=== PATIENT | female | born 1995 | race Caucasian/White ===

== ENCOUNTER → 2017-05-29 | Outpatient (CLI) | payer MEDICAID ==
[2017-05-29 11:02] LABS: ALANINE AMINOTRANSFERASE 25 U/L (9-52); ALBUMIN 4.2 g/dL (3.5-5.0); ALKALINE PHOSPHATASE 46 U/L (38-126); ANION GAP 11 (5-19); ASPARTATE AMINO TRANSFERASE 15 U/L (14-36); BILIRUBIN,DIRECT 0.3 mg/dL (0.0-0.4); BILIRUBIN,TOTAL 0.4 mg/dL (0.2-1.3); BLOOD UREA NITROGEN 6 mg/dL (7-20); CALCIUM 9.8 mg/dL (8.4-10.2); CARBON DIOXIDE 25 mmol/L (22-30); CHLORIDE 105 mmol/L (98-107); GLUCOSE 61 mg/dL (75-110); LDH 293 U/L (313-618); POTASSIUM 3.6 mmol/L (3.6-5.0); SODIUM 141.1 mmol/L (137-145); TOTAL PROTEIN 7.4 g/dL (6.3-8.2); URIC ACID 3.2 mg/dL (2.5-6.2)
== END ==
LOC: OCH 09:54
PROVIDERS: ATTEND Nurse Practitioner Women's Health
DX: Z34.81 Encounter for supervision of other normal pregnancy, first trimester (principal)
CPT/HCPCS: 36415; 80053; 83615; 84550

== ENCOUNTER → 2017-06-04 | Outpatient (CLI) | payer MEDICAID ==
--- NOTE | 2017-06-04 16:18 | RADIOLOGY REPORT (SQ) ---
EXAM DESCRIPTION: U/S [id number] TRNABD 1GES W/ODOP COMPLETED DATE/TIME: 06/04/2017 4:01 pm REASON FOR STUDY: ENCOUNTER FOR SUPERVISION OF OTHER NORMAL , FIRST TRIMESTER Z34.81 ENCOU NTER FOR SUPRVSN OF NORMAL , FIRST TRIM COMPARISON: None. TECHNIQUE: Transabdominal static and realtime grayscale images acquired of the pelvis. Additional se lected spectral and color Doppler images recorded. All images stored on PACs. bHCG: Not available. LIMITATIONS: None. FINDINGS: FETUS: Living intrauterine . EGA: 9 weeks 5 days ANYI: 01/02/2018 FHR: 162 beats per minute. SUBCHORIONIC BLEED: No. SIZE OF BLEED: Not applicable. UTERUS: No masses. No anomalies. CERVICAL LENGTH: Not measured. RIGHT ADNEXA: Normal ovary with normal vascular flow. No adnexal free fluid. No adnexal masses. LEFT ADNEXA: Ovary not identified. No adnexal free fluid. No adnexal masses. FREE FLUID: None. OTHER: No other significant finding. IMPRESSION: LIVING INTRAUTERINE . EGA 9 weeks 5 days Trimester of : First - 0 to 13 weeks. TECHNICAL DOCUMENTATION: JOB ID: [id number] [employer]- All Rights Reserved Reading location - IP/workstation name: [email or web address]
== END ==
LOC: RAD 14:46
PROVIDERS: ATTEND Nurse Practitioner Women's Health
DX: Z34.81 Encounter for supervision of other normal pregnancy, first trimester (principal)
CPT/HCPCS: 76801

== ENCOUNTER 2017-12-27 12:29 | Outpatient (CLI) | payer MEDICAID ==
[2017-12-27 13:29] LABS: APPEARANCE,URINE CLOUDY; BILIRUBIN,URINE NEGATIVE (NEGATIVE); GLUCOSE, URINE NEGATIVE (NEGATIVE); KETONES,URINE NEGATIVE (NEGATIVE); LEUKOCYTE ESTERASE,URINE LARGE (NEGATIVE); NITRITE,URINE NEGATIVE (NEGATIVE); PROTEIN,URINE 30 mg/dL (NEGATIVE); URINE SPECIFIC GRAVITY 1.024
[2017-12-27 13:30] LABS: COLOR,URINE YELLOW
--- NOTE | 2017-12-27 13:42 | Non Stress Test Report ---
Non Stress Test Datetime Report Generated by CPN: 12/27/2017 13:42 DEMOGRAPHIC EGA NST: 38.5 INDICATION Indication for Study: Other Indication for Study (NST) Other: lc r/o srom MONITORING Monitor Explained: Monitor Explained; Test Explained; Patient Verbalized Understanding Time on Monitor: 12/27/2017 12:55 Time off Monitor: 12/27/2017 12:35 NST Duration: -20 NST INTERVENTIONS NST Interventions: None Physician Notified NST: A. Mckenzie, CNM BABY A: [id number] BABY A Movement : Present Contraction Frequency : 5-18 FHR Baseline : 140 Accelerations : 15X15 Decelerations : None Variability : Moderate 6-25bpm NST Review: Meets Criteria for Reactive NST NST Review and Verified By : Gina Davidavancelke RN NST REPORT Report Trigger: Send Report
[2017-12-27 13:44] LABS: URINE AMPHETAMINES SCREEN NEGATIVE; URINE BARBITURATES SCREEN NEGATIVE; URINE BENZODIAZEPINES SCREEN NEGATIVE; URINE COCAINE SCREEN NEGATIVE; URINE MARIJUANA (THC) SCREEN NEGATIVE; URINE METHADONE SCREEN NEGATIVE; URINE PHENCYCLIDINE SCREEN NEGATIVE
== END 2017-12-27 13:50 | disposition home or self-care (01) ==
LOC: LC 12:29
PROVIDERS: ATTEND Obstetrics & Gynecology
PROC: 4A1HXCZ Monitoring of Products of Conception, Cardiac Rate, External Approach (ICD-10-PCS; principal; 2017-12-27)
DX: O47.1 False labor at or after 37 completed weeks of gestation (principal); Z3A.38 38 weeks gestation of pregnancy
CPT/HCPCS: 59025; 80307; 81005; 84112; 87086

== ENCOUNTER 2018-01-04 13:07 | Outpatient (CLI) | payer MEDICAID ==
[2018-01-04 14:06] LABS: APPEARANCE,URINE SLIGHTLY-CLOUDY; BILIRUBIN,URINE NEGATIVE (NEGATIVE); COLOR,URINE YELLOW; GLUCOSE, URINE NEGATIVE (NEGATIVE); KETONES,URINE NEGATIVE (NEGATIVE); LEUKOCYTE ESTERASE,URINE SMALL (NEGATIVE); NITRITE,URINE NEGATIVE (NEGATIVE); PROTEIN,URINE NEGATIVE (NEGATIVE); URINE SPECIFIC GRAVITY 1.014
[2018-01-04 14:33] LABS: URINE AMPHETAMINES SCREEN NEGATIVE; URINE BARBITURATES SCREEN NEGATIVE; URINE BENZODIAZEPINES SCREEN NEGATIVE; URINE COCAINE SCREEN NEGATIVE; URINE MARIJUANA (THC) SCREEN NEGATIVE; URINE METHADONE SCREEN NEGATIVE; URINE PHENCYCLIDINE SCREEN NEGATIVE
--- NOTE | 2018-01-04 21:47 | Non Stress Test Report ---
Non Stress Test Datetime Report Generated by CPN: 01/04/2018 21:47 DEMOGRAPHIC EGA NST: 39.6 INDICATION Indication for Study: Other Indication for Study (NST) Other: Labor Check MONITORING Monitor Explained: Monitor Explained; Test Explained; Patient Verbalized Understanding Time on Monitor: 01/04/2018 13:21 NST INTERVENTIONS NST Interventions: PO Hydration; Reposition Patient Physician Notified NST: Dr. Deyanira BABY A: [id number] BABY A Movement : Present Contraction Frequency : 2-5 FHR Baseline : 135 Accelerations : 15X15 Decelerations : None Variability : Moderate 6-25bpm NST Review: Meets Criteria for Reactive NST NST Review and Verified By : Jj Moore RN NST Results: Reactive NST REPORT Report Trigger: Send Report
== END 2018-01-04 15:11 | disposition home or self-care (01) ==
LOC: LC 13:07
PROVIDERS: ATTEND Obstetrics & Gynecology
PROC: 4A1HXCZ Monitoring of Products of Conception, Cardiac Rate, External Approach (ICD-10-PCS; principal; 2018-01-04)
DX: O47.1 False labor at or after 37 completed weeks of gestation (principal); Z3A.39 39 weeks gestation of pregnancy
CPT/HCPCS: 59025; 80307; 81005

== ENCOUNTER 2018-01-04 21:46 | Outpatient (CLI) | payer MEDICAID ==
[2018-01-04 22:37] LABS: APPEARANCE,URINE CLOUDY; BILIRUBIN,URINE NEGATIVE (NEGATIVE); COLOR,URINE YELLOW; GLUCOSE, URINE NEGATIVE (NEGATIVE); KETONES,URINE NEGATIVE (NEGATIVE); LEUKOCYTE ESTERASE,URINE LARGE (NEGATIVE); NITRITE,URINE NEGATIVE (NEGATIVE); PROTEIN,URINE NEGATIVE (NEGATIVE)
[2018-01-04 23:00] LABS: URINE AMPHETAMINES SCREEN NEGATIVE; URINE BARBITURATES SCREEN NEGATIVE; URINE BENZODIAZEPINES SCREEN NEGATIVE; URINE COCAINE SCREEN NEGATIVE; URINE MARIJUANA (THC) SCREEN NEGATIVE; URINE METHADONE SCREEN NEGATIVE; URINE PHENCYCLIDINE SCREEN NEGATIVE
[2018-01-04] MEDS ORDERED: HYDROXYZINE PAMOATE 50 MG CAPSULE ONE (23:02)
[2018-01-04] MEDS ORDERED: HYDROXYZINE PAMOATE 50 MG CAPSULE PO ONE (23:04)
--- NOTE | 2018-01-04 23:27 | Non Stress Test Report ---
Non Stress Test Datetime Report Generated by CPN: 01/04/2018 23:27 DEMOGRAPHIC EGA NST: 39.6 INDICATION Indication for Study: Ordered by Provider Indication for Study (NST) Other: LC URINE RESULTS Urine Protein, NST: Negative Urine Ketones - NST: Negative Urine Glucose - NST: Negative Urine Blood - NST: Positive MONITORING Monitor Explained: Monitor Explained; Test Explained; Patient Verbalized Understanding Time on Monitor: 01/04/2018 22:06 Time off Monitor: 01/04/2018 23:00 NST Duration: 54 NST INTERVENTIONS NST Interventions: PO Hydration Physician Notified NST: Deyanira Physician Notified NST: Dr. Deyanira BABY A Movement : Present Contraction Frequency : irregular FHR Baseline : 140 Accelerations : 15X15 Decelerations : None Variability : Moderate 6-25bpm NST Review: Meets Criteria for Reactive NST NST Review and Verified By : Annbaelle Ogden RN NST Results: Reactive NST REPORT Report Trigger: Send Report
== END 2018-01-04 23:16 | disposition home or self-care (01) ==
LOC: LC 21:46
PROVIDERS: ATTEND Obstetrics & Gynecology
PROC: 4A1HXCZ Monitoring of Products of Conception, Cardiac Rate, External Approach (ICD-10-PCS; principal; 2018-01-04)
DX: O47.1 False labor at or after 37 completed weeks of gestation (principal); Z3A.49 Greater than 42 weeks gestation of pregnancy
CPT/HCPCS: 59025; 81005; 80307; J3490

== ENCOUNTER 2018-01-05 01:59 | Inpatient (IN) | payer MEDICAID ==
[2018-01-05] MEDS ORDERED: RINGERS SOLUTION,LACTATED 1,000 ML IV PRN (02:17)
[2018-01-05] MEDS ORDERED: OXYTOCIN 10 UNIT/ML VIAL ONE (02:19)
[2018-01-05] MEDS ORDERED: MISOPROSTOL 0.2 MG TABLET ONE (02:19)
[2018-01-05] MEDS ORDERED: LIDOCAINE 1% INJ-PF (10 MG/ML) 30 ML SDV ONE (02:20)
[2018-01-05] MEDS ORDERED: OXYTOCIN/NORMAL SALINE 20 UNIT/1,000 ML RTUINJ ONE (02:20)
[2018-01-05] MEDS ORDERED: KETOROLAC TROMETHAMINE INJ/PF 30 MG/1 ML SDV IV ONE (02:41)
[2018-01-05] MEDS ORDERED: KETOROLAC TROMETHAMINE INJ/PF 30 MG/1 ML SDV ONE (02:45)
--- NOTE | 2018-01-05 02:46 | Admission Physical ---
Datetime Report Generated by CPN: 01/05/2018 02:46 CURRENT ADMISSION Chief Complaint: Uterine Contractions Indication for Induction: Not Applicable Admit Impression : Term, Intrauterine Admit Plan: Admit to Unit; Initiate Labor Protocol ALLERGIES Medication Allergies: No Medication Allergies: No Known Allergies (01/05/2018) Latex: No Latex Allergies OBSTETRICAL HISTORY EDC: 01/05/2018 00:00 : 2 Para: 1 Term: 0 : 1 SAB: 0 IAB: 0 Ectopic: 0 Livin Cesareans: 0 VBACs: 0 Multiple Births: 0 Gestational Diabetes: No Rh Sensitization: No Incompetent Cervix: No KAILEE: No Infertility: No ART Treatment: No Uterine Anomaly: No IUGR: No Hx Previous C/S: No Macrosomia: No Hx Loss/Stillborn: No PIH: Yes Hx : No Placenta Previa/Abruption: No Depression/PP Depression: No PTL/PROM: No Post Hemorrhage: No Current Procedures: Ultrasound Obstetrical History Comments: G1 - , 35 WEEKS, HELLP G2 - CURRENT SEE RECORDS Alcohol: No Marijuana : No Cocaine: No Other Illicit Drugs: No Cigarettes: Never Smoker. [id number] MEDICAL HISTORY Diabetes: No Blood Transfusion: No Pulmonary Disease (Asthma, TB): No Breast Disease: No Hypertension: No Structures Mechanic Surgery: No Heart Disease: No Hosp/Surgery: No Autoimmune Disorder: No Anesthetic Complications: No Kidney Disease: No Abnormal Pap Smear: No Neuro/Epilepsy: No Psychiatric Disorders: No Other Medical Diseases: No Hepatitis/Liver Disease: No Significant Family History: No Varicosities/Phlebitis: No Trauma/Violence : No Thyroid Dysfunction: No Medical History Comments: APPENDECTOMY INFECTIOUS HISTORY Gonorrhea: No Genital Herpes: No Chlamydia: No Tuberculosis: No Syphilis: No Hepatitis: No HIV/AIDS Exposure: No Rash or Viral Illness: No HPV: No PHYSICAL EXAM General: Normal HEENT: Normal Neurologic: Normal Thyroid: Normal Heart: Normal Lungs: Normal Breast: Normal Back: Normal Abdomen: Normal Genitourinary Exam: Normal Extremities: Normal DTRs: Normal Pelvic Type: Adequate Vital Signs: Reviewed; Within Normal Limits VAGINAL EXAM Dilatation: 10 Effacement: 100 Station: 3 MEMBRANES Membranes: Ruptured Amniotic Fluid Color: Clear FETUS A EGA: 40.0 Monitoring: External US FHR- Baseline: 120 Variability: Moderate 6-25bpm Accelerations: 15X15 Decelerations: Early; Late; Variable FHR Category: Category II PLANS FOR LABOR AND DELIVERY Labor and Delivery: None Pain Management: Epidural Feeding Preference: Breast Circumcision: N/A INFORMED CONSENT Signature: with User ID: [email or web address]
[2018-01-05] MEDS ORDERED: MAGNESIUM HYDROXIDE SUSP 30 ML UDCUP PO PRN (02:48)
[2018-01-05] MEDS ORDERED: GLYCERIN/WITCH HAZEL LEAF 1 EACH MED..PAD TP PRN (02:48)
[2018-01-05] MEDS ORDERED: ACETAMINOPHEN WITH CODEINE #3 TABLET PO PRN (02:48)
[2018-01-05] MEDS ORDERED: PROMETHAZINE HCL 25 MG TABLET PO PRN (02:48)
[2018-01-05] MEDS ORDERED: PROMETHAZINE HCL 25 MG SUPP.RECT PR PRN (02:48)
[2018-01-05] MEDS ORDERED: PROMETHAZINE HCL INJ 25 MG/1 ML VIAL IV PRN (02:48)
[2018-01-05] MEDS ORDERED: PSEUDOEPHEDRINE HCL 30 MG TABLET PO PRN (02:48)
[2018-01-05] MEDS ORDERED: DIPH/PERTUSS(ACELL)/TETANUS VAC/PF 0.5 ML SYR (>=10YO) IM PRN (02:48)
[2018-01-05] MEDS ORDERED: ZOLPIDEM TARTRATE 5 MG TABLET PO PRN (02:48)
[2018-01-05] MEDS ORDERED: MEASLES,MUMPS&RUBELLA VACC/PF 0.5 ML VIAL SUBCUT PRN (02:48)
[2018-01-05] MEDS ORDERED: NA PHOS,M-B/NA PHOS,DI-BA (ADULT) 133 ML ENEMA PR PRN (02:48)
[2018-01-05] MEDS ORDERED: DIPHENHYDRAMINE HCL 25 MG CAPSULE PO PRN (02:48)
[2018-01-05] MEDS ORDERED: BENZOCAINE/MENTHOL AEROSOL SPRAY 56 ML TOP PRN (02:48)
[2018-01-05] MEDS ORDERED: ACETAMINOPHEN 650 MG SUPP.RECT PR PRN (02:48)
[2018-01-05] MEDS ORDERED: OXYTOCIN/NORMAL SALINE 20 UNIT/1,000 ML RTUINJ IV PRN (02:48)
[2018-01-05] MEDS ORDERED: DIBUCAINE 1% OINTMENT 28 GM TP PRN (02:48)
[2018-01-05 02:49] LABS: MEAN CORPUSCULAR HEMOGLOBIN 27.3 pg (27.0-33.4); MEAN CORPUSCULAR HGB CONC 32.4 g/dL (32.0-36.0); MEAN CORPUSCULAR VOLUME 84 fl (80-97); PLATELET COUNT 402 10^3/uL (150-450); RED BLOOD COUNT 3.69 10^6/uL (3.72-5.28); RED CELL DISTRIBUTION WIDTH 13.6 % (11.5-14.0); WHITE BLOOD COUNT 20.8 10^3/uL (4.0-10.5)
[2018-01-05 03:03] LABS: ABSOLUTE LYMPHOCYTES# (MANUAL) 2.9 10^3/uL (0.5-4.7); ABSOLUTE NEUTROPHILS# (MANUAL) 16.8 10^3/uL (1.7-8.2); BASOPHILS % (MANUAL) 0 % (0-2); EOSINOPHILS % (MANUAL) 0 % (0-6); LYMPHOCYTES % (MANUAL) 14 % (13-45); MONOCYTES % (MANUAL) 5 % (3-13); SEGMENTED NEUTROPHILS % (MAN) 81 % (42-78); TOTAL CELLS COUNTED 100
[2018-01-05 03:06] LABS: OVALOCYTES SLIGHT; PLATELET COMMENT ADEQUATE; POIKILOCYTOSIS SLIGHT; TOXIC GRANULATION SLIGHT; TOXIC VACUOLATION PRESENT
[2018-01-05] MEDS ORDERED: METHYLERGONOVINE MALEATE INJ/PF 0.2 MG/1 ML AMPULE ONE (04:01)
[2018-01-05] MEDS: IBUPROFEN 800 MG TABLET PO SCH ×3 (06:03→22:33)
[2018-01-05] MEDS: ACETAMINOPHEN WITH CODEINE #3 TABLET PO PRN ×2 (08:40→15:28)
[2018-01-05 09:51] LABS: APPEARANCE,URINE CLOUDY; BILIRUBIN,URINE NEGATIVE (NEGATIVE); COLOR,URINE YELLOW; GLUCOSE, URINE NEGATIVE (NEGATIVE); KETONES,URINE NEGATIVE (NEGATIVE); LEUKOCYTE ESTERASE,URINE TRACE (NEGATIVE); NITRITE,URINE NEGATIVE (NEGATIVE); PROTEIN,URINE 30 mg/dL (NEGATIVE); URINE SPECIFIC GRAVITY 1.016
[2018-01-05] MEDS: ASPIRIN 81 MG TABLET, CHEWABLE PO SCH (09:54)
[2018-01-05] MEDS: PRENATAL VITAMIN W DHA CAPSULE PO SCH (09:54)
[2018-01-05] MEDS: FAMOTIDINE 20 MG TABLET PO SCH ×2 (09:54→22:33)
[2018-01-05] MEDS: SENNOSIDES/DOCUSATE 8.6-50 MG 1 EACH TABLET PO SCH (09:54)
[2018-01-05] MEDS: DOCUSATE SODIUM 100 MG CAPSULE PO SCH ×2 (09:54→18:31)
[2018-01-05] MEDS: FERROUS SULFATE 325 MG TABLET PO SCH ×2 (09:54→18:31)
[2018-01-05] MEDS ORDERED: (PENDING PHARMACY ID) (Prenatal No122/Iron/Folic Acid [Prenatal Multi Tablet] 1 EACH) PO SCH (10:00)
--- NOTE | 2018-01-05 10:12 | PDOC PROGRESS REPORT ---
Subjective-OB Progress Note for:: 01/05/18 Subjective: Doing well, no c/o, discussing delivery, bottle feeding, encouraged to wear bra Physical Exam (OB) Vital Signs: Temp Pulse Resp BP Pulse Ox 99.1 F 61 16 109/60 98 01/05/18 08:14 01/05/18 08:14 01/05/18 08:14 01/05/18 08:14 01/05/18 08:14 Intake & Output 01/04/18 01/05/18 01/06/18 06:59 06:59 06:59 Intake Total 788 Balance 788 Weight 84 kg - PIH/Pre-Eclampsia Clonus: Negative Headache: Absent Epigastric Pain: No Visual Changes: No - Lochia Lochia Amount: Scant < 10 ml Lochia Color: Rubra/Red - Abdomen Description: Tender, Soft, Round Hernia Present: No Fundal Description: Firm, Midline Fundal Height: u/u - u/2 Objective-Diagnostic Laboratory: 01/05/18 02:30 01/05/18 01/05/18 01/05/18 02:30 02:30 08:57 WBC 20.8 H RBC 3.69 L Hgb 10.0 L Hct 31.0 L MCV 84 MCH 27.3 MCHC 32.4 RDW 13.6 Plt Count 402 Seg Neutrophils % Not Reportable Lymphocytes % Not Reportable Monocytes % Not Reportable Eosinophils % Not Reportable Basophils % Not Reportable Absolute Neutrophils Not Reportable Absolute Lymphocytes Not Reportable Absolute Monocytes Not Reportable Absolute Eosinophils Not Reportable Absolute Basophils Not Reportable Urine Color YELLOW Urine Appearance CLOUDY Urine pH 7.0 Ur Specific [place] 1.016 Urine Protein 30 H Urine Glucose (UA) NEGATIVE Urine Ketones NEGATIVE Urine Blood LARGE H Urine Nitrite NEGATIVE Ur Leukocyte Esterase TRACE H Urine WBC (Auto) 21 Urine RBC (Auto) >182 Blood Type O POSITIVE Antibody Screen NEGATIVE Assessment and Plan(PN) - Assessment and Plan (1) Delivery normal Is this a current diagnosis for this admission?: Yes - Time Spent with Patient Time with patient: Less than 15 minutes Medications reviewed and adjusted accordingly: Yes - Disposition Anticipated Discharge: Home Within: within 48 hours
[2018-01-06] MEDS: IBUPROFEN 800 MG TABLET PO SCH ×3 (05:21→21:26)
[2018-01-06 07:35] LABS: HEMATOCRIT 25.6 % (36.0-47.0); HEMOGLOBIN 8.7 g/dL (12.0-15.5); MEAN CORPUSCULAR HEMOGLOBIN 28.6 pg (27.0-33.4); MEAN CORPUSCULAR HGB CONC 33.8 g/dL (32.0-36.0); MEAN CORPUSCULAR VOLUME 84 fl (80-97); PLATELET COUNT 196 10^3/uL (150-450); RED BLOOD COUNT 3.03 10^6/uL (3.72-5.28); RED CELL DISTRIBUTION WIDTH 13.6 % (11.5-14.0); WHITE BLOOD COUNT 9.3 10^3/uL (4.0-10.5)
--- NOTE | 2018-01-06 10:23 | PDOC PROGRESS REPORT ---
Subjective-OB Progress Note for:: 01/06/18 Subjective: PP Day #1, doing well, no complaints, bottle feeding, O+, Rubella Immune Physical Exam (OB) Vital Signs: Temp Pulse Resp BP Pulse Ox 97.7 F 52 L 18 109/55 L 98 01/06/18 08:24 01/06/18 08:24 01/06/18 08:24 01/06/18 08:24 01/06/18 08:24 Intake & Output 01/05/18 01/06/18 01/07/18 06:59 06:59 06:59 Intake Total 1268 400 Balance 1268 400 Weight 84 kg - General General Appearance: Appears well, Alert In distress: None - PIH/Pre-Eclampsia Clonus: Negative Headache: Absent Epigastric Pain: No Visual Changes: No - Lochia Lochia Amount: Scant < 10 ml Lochia Color: Rubra/Red - Abdomen Description: Soft, Round Hernia Present: No Fundal Description: Firm, Midline Fundal Height: u/u - u/2 - Respiratory Respiratory Status: No respiratory distress - Abdominal Distension: No distension Tenderness: Nontender - Genitourinary Female External exam: Normal - Extremities Upper extremity: Normal inspection Lower extremities: Normal inspection - Neurological Cognition: Normal Orientation: AAOx4 - Psychological Associated symptoms: Normal affect, Normal mood - Skin Skin Temperature: Warm Skin Moisture: Dry Objective-Diagnostic Laboratory: 01/06/18 07:00 01/06/18 07:00 WBC 9.3 RBC 3.03 L Hgb 8.7 L Hct 25.6 L MCV 84 MCH 28.6 MCHC 33.8 RDW 13.6 Plt Count 196 Assessment and Plan(PN) - Assessment and Plan (1) Anemia, Is this a current diagnosis for this admission?: Yes (2) Delivery normal Is this a current diagnosis for this admission?: Yes Plan:: Routine PP orders - Time Spent with Patient Time with patient: Less than 15 minutes Medications reviewed and adjusted accordingly: Yes - Disposition Anticipated Discharge: Home Within: within 24 hours
[2018-01-06] MEDS: ASPIRIN 81 MG TABLET, CHEWABLE PO SCH (12:25)
[2018-01-06] MEDS: SENNOSIDES/DOCUSATE 8.6-50 MG 1 EACH TABLET PO SCH (12:25)
[2018-01-06] MEDS: DOCUSATE SODIUM 100 MG CAPSULE PO SCH ×2 (12:25→17:58)
[2018-01-06] MEDS: FERROUS SULFATE 325 MG TABLET PO SCH ×2 (12:25→17:58)
[2018-01-06] MEDS: FAMOTIDINE 20 MG TABLET PO SCH ×2 (12:25→21:26)
[2018-01-06] MEDS: PRENATAL VITAMIN W DHA CAPSULE PO SCH (12:25)
[2018-01-07] MEDS: IBUPROFEN 800 MG TABLET PO SCH (05:51)
[2018-01-07 08:19] VITALS: BP 109/55
--- NOTE | 2018-01-07 08:46 | Delivery Summary ---
Del Sum A-C Datetime Report Generated by CPN: 01/07/2018 08:45 DELIVERY PERSONNEL DELIVERY PERSONNEL: [id number] Delivery Doctor:: Dr. Mcmillan Labor and Delivery Nurse:: Celeste Bennett RNwater resources program director Nurse:: Veena Ogden RN Nursery Nurse:: Suzy Snider RN Relationship Manager/FLOOR COVERINGS INSTALLER: Kemi Green, ST MATERNAL INFORMATION Delivery Anesthesia: None Medications After Delivery: Methergine 0.2mg IM; Cytotec 1000mcg Per Rectum/Vagina; Other-Please Comment Meds After Delivery Comment: Pitocin 20 units IM Toradol 30 mg IV Maternal Complications: Precipitous Labor (<3hrs) LABOR SUMMARY EDC: 01/05/2018 00:00 No. Babies in Womb: 1 Attempted: No Labor Anesthesia: None LABOR INFORMATION Reason for Induction: Not Applicable Onset of Labor: 01/05/2018 02:11 Complete Dilatation: 01/05/2018 02:30 Oxytocin: N/A Group B Beta Strep: NEGATIVE Antibiotics # of Doses: 0 Antibiotics Time of Last Dose: N/A Name of Antibiotic Given: N/A Steroids Given: None Reason Steroids Not Administered: Not Applicable MEMBRANES Membranes Rupture Method: Spontaneous Rupture of Membranes: 01/05/2018 02:17 Length of Rupture (hr): 0.35 Amniotic Fluid Color: Particulate Meconium Amniotic Fluid Amount: Moderate Amniotic Fluid Odor: Normal STAGES OF LABOR Stage 1 hr: 0 Stage 1 min: 19 Stage 2 hr: 0 Stage 2 min: 8 Stage 3 hr: 0 Stage 3 min: 3 Total Time in Labor hr: 0 Total Time in Labor min: 30 VAGINAL DELIVERY Episiotomy: None Laceration #1: None Laceration Extension #1: N/A Laceration Repair: Not Applicable Initial Vag Sponge Count: 0 Final Vag Sponge Count: 0 Initial Vag Sharps Count: 0 Final Vag Sharps Count: 0 Sponge Count Correct: N/A Sharps Count Correct: N/A CSECTION DELIVERY Primary Indication: N/A Secondary Indication: N/A CSection Incidence: N/A Labor: N/A Elective: N/A CSection Incision: N/A BABY A INFORMATION Delivery Date/Time: 01/05/2018 02:38 Method of Delivery: Vaginal Method of Delivery: Vaginal Born in Route : No : N/A Forceps: N/A Vacuum Extraction: N/A Shoulder Dystocia : No PRESENTATION/POSITION BABY A Presentation: Cephalic Presentation: Cephalic Cephalic Presentation: Vertex Vertex Position: Left Occipital Anterior Breech Presentation: N/A PLACENTA INFORMATION BABY A Placenta Delivery Time : 01/05/2018 02:41 Placenta Method of Delivery: Spontaneous Placenta Status: Delivered SCORES BABY A Heart Rate 1 min: >100 bpm Resp Effort 1 min: Good Cry Reflex Irritability 1 min: Cough or Sneeze or Pulls Away Muscle Tone 1 min: Active Motion Color 1 min: Blue/Pale Resuscitation Effort 1 min: N/A SCORE 1 MIN: 8 Heart Rate 5 min: >100 bpm Resp Effort 5 min: Good Cry Reflex Irritability 5 min: Cough or Sneeze or Pulls Away Muscle Tone 5 min: Active Motion Color 5 min: Body Wrens, Extremities Blue Resuscitation Effort 5 min: N/A SCORE 5 MIN: 9 INFORMATION BABY A Gestational Age at Delivery: 40.0 Gestational Status: Full Term- 39- 40.6 Weeks Infant Outcome : Liveborn Infant Condition : Stable Sex: Female Infant Sex: Female IDENTIFICATION BABY A Infant Verification Date/Time: 01/05/2018 02:45 ID Band Number: [id number] Mother's Name Verified: Yes RN Verifying Infant: Charles LindseySybil ORTEGA Additional Verifying Personnel: Magy Bennett RN WEIGHT/LENGTH BABY A Birthweight (gm): 3900 Weight (lb): 8 Infant Weight (oz): 10 Length (in): 20.50 Infant Length (cm): 52.07 CORD INFORMATION BABY A No. Cord Vessels: 3 Nuchal Cord : N/A Cord Blood Taken: Yes-For Eval (Mom's Blood Type - or O+) Suction: Mouth; Nose; Pharynx ASSESSMENT BABY A Infant Complications: Meconium Physical Findings at Delivery: Within Normal Limits Physical Findings- Other: initial assessment ot be performed by nursery nurse who is at bedside Respirations: Appears Normal Skin to Skin: Yes Cut Off Tender Glass/ALS Called : No Care By: Elva Snider, RN BABY B INFORMATION : N/A SIGNATURES Signature: with User ID: [email or web address]
[2018-01-07] MEDS: PRENATAL VITAMIN W DHA CAPSULE PO SCH (09:39)
[2018-01-07] MEDS: ASPIRIN 81 MG TABLET, CHEWABLE PO SCH (09:39)
[2018-01-07] MEDS: FERROUS SULFATE 325 MG TABLET PO SCH (09:39)
[2018-01-07] MEDS: DOCUSATE SODIUM 100 MG CAPSULE PO SCH (09:40)
[2018-01-07] MEDS: FAMOTIDINE 20 MG TABLET PO SCH (09:40)
[2018-01-07] MEDS: SENNOSIDES/DOCUSATE 8.6-50 MG 1 EACH TABLET PO SCH (09:40)
--- NOTE | 2018-01-07 10:13 | PDOC DISCHARGE SUMMARY ---
Final Diagnosis Discharge Date: 01/07/18 - Final Diagnosis (1) Anemia, Is this a current diagnosis for this admission?: Yes (2) Delivery normal Is this a current diagnosis for this admission?: Yes Discharge Data - Discharge Medication Prescriptions: Ibuprofen [Motrin 800 mg Tablet] 800 mg PO Q8HP PRN #60 tablet PRN Reason: Home Medications: No122/Iron/Folic Acid [ Multi Tablet] 1 each PO DAILY 12/27/17 Ferrous Sulfate [Feosol 325 mg Tablet] 325 mg PO BID tablet 01/07/18 Ibuprofen [Motrin 800 mg Tablet] 800 mg PO Q8HP PRN #60 tablet 01/07/18 Procedures: NST Intrapartum Procedure(s): Spontaneous Vaginal Delivery - Diagnosis Test Laboratory: Temp Pulse Resp BP Pulse Ox 98.5 F 69 16 109/55 L 100 01/07/18 09:43 01/07/18 09:43 01/07/18 09:43 01/07/18 09:43 01/07/18 09:43 01/05/18 01/06/18 02:30 07:00 RBC 3.69 L 3.03 L Hgb 10.0 L 8.7 L Hct 31.0 L 25.6 L - Discharge information/Instructions Discharge Activity: Balance Activity w/Rest, Pelvic Rest Discharge Diet: Regular Disposition: HOME, SELF-CARE Follow up with: [facility] in: 4, Weeks
[2018-01-07] MEDS ORDERED: DIPH/PERTUSS(ACELL)/TETANUS VAC/PF 0.5 ML SYR (>=10YO) IM PRN (11:15)
== END 2018-01-07 13:23 | disposition home or self-care (01) | DRG 806 ==
LOC: LC 01:59 → LR 02:15 → 2S 05:08
PROVIDERS: ADMIT Obstetrics & Gynecology; ATTEND Obstetrics & Gynecology
PROC: 10E0XZZ Delivery of Products of Conception, External Approach (ICD-10-PCS; principal; 2018-01-05)
PROC: 4A1HXCZ Monitoring of Products of Conception, Cardiac Rate, External Approach (ICD-10-PCS; 2018-01-05)
DX: O62.3 Precipitate labor (principal); D62 Acute posthemorrhagic anemia; Z37.0 Single live birth; O90.81 Anemia of the puerperium; Z3A.40 40 weeks gestation of pregnancy
CPT/HCPCS: 36415; 81001; 85025; 85027; 86592; 86850; 86900; 86901; 87086; 90715; J1885; J2210; J2590; J3490

== ENCOUNTER 2018-06-29 20:58 | Emergency (ER) | payer MEDICAID ==
--- NOTE | 2018-06-29 22:28 | ER Document Report ---
ED Medical Screen (RME) - General Chief Complaint: Knee Pain Stated Complaint: KNEE PAIN Time Seen by Provider: 06/29/18 22:25 Primary Care Provider: ANABEL CRAWFORD NP [Primary Care Provider] - Follow up as needed Notes: 22-year-old female presents to the emergency department with acute left knee pain since yesterday. 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 She was unable to bear full weight on it but is able to ambulate on it and bear some weight. No trauma, no twisting injury, no fevers, patient is able to move the knee no other complaints TRAVEL OUTSIDE OF THE [place] IN LAST 30 DAYS: No - Related Data Allergies/Adverse Reactions: No Known Allergies Allergy (Verified 01/05/18 02:14) Past Medical History - Social History Chew tobacco use (# tins/day): No Frequency of alcohol use: None Drug Abuse: None Renal/ Medical History: Reports: Hx Pelvic Inflammatory Disease. Denies: Hx Peritoneal Dialysis Past Surgical History: Reports: Hx Appendectomy - Immunizations Immunizations up to date: Yes Hx Diphtheria, Pertussis, Tetanus Vaccination: Yes Physical Exam - Vital signs Vitals: Temp Pulse Resp BP Pulse Ox 98.3 F 79 16 113/53 L 100 06/29/18 21:57 06/29/18 21:57 06/29/18 21:57 06/29/18 21:57 06/29/18 21:57 Course - Vital Signs Vital signs: Temp Pulse Resp BP Pulse Ox 98.3 F 79 16 113/53 L 100 06/29/18 21:57 06/29/18 21:57 06/29/18 21:57 06/29/18 21:57 06/29/18 21:57 Doctor's Discharge - Discharge Referrals: ANABEL CRAWFORD NP [Primary Care Provider] - Follow up as needed
--- NOTE | 2018-06-30 00:03 | ER Document Report ---
HPI - HPI Patient complains to provider of: Knee pain Time Seen by Provider: 06/29/18 22:25 Pain Level: 4 Context: 22-year-old female presents to the emergency department with acute left knee pain since yesterday. 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 She was unable to bear full weight on it but is able to ambulate on it and bear some weight. No trauma, no twisting injury, no fevers, patient is able to move the knee no other complaints - CONSTITUTIONAL Constitutional: DENIES: Fever, Chills - REPRODUCTIVE Reproductive: DENIES: : - MUSCULOSKELETAL Musculoskeletal: REPORTS: Extremity pain - right knee Past Medical History - Social History Smoking Status: Never Smoker Chew tobacco use (# tins/day): No Frequency of alcohol use: None Drug Abuse: None Family History: Reviewed & Not Pertinent Patient has suicidal ideation: No Patient has homicidal ideation: No Renal/ Medical History: Reports: Hx Pelvic Inflammatory Disease. Denies: Hx Peritoneal Dialysis Past Surgical History: Reports: Hx Appendectomy - Immunizations Immunizations up to date: Yes Hx Diphtheria, Pertussis, Tetanus Vaccination: Yes Vertical Provider Document - CONSTITUTIONAL Notes: PHYSICAL EXAMINATION: Reviewed vital signs and charting by RN GENERAL: Alert, interacts well. No acute distress. HEAD: Normocephalic, atraumatic. EYES: Pupils equal and round. Extraocular movements intact. ENT: Oral mucosa moist, tongue midline. NECK: Full range of motion. Supple. Trachea midline. LUNGS: Clear to auscultation bilaterally, no wheezes, rales, or rhonchi. No respiratory distress. HEART: Regular rate and rhythm. No murmur EXTREMITIES: Moves all 4 extremities spontaneously. Limited range of motion left knee but she is able to move it more pain with knee extension and flexion, full strength 5/5 in left lower extremity some mild edema, pain in the popliteal fossa, normal distal neurovascular exam BACK: No CVAT NEUROLOGIC: Oriented and appropriate. Normal speech. PSYCH: Normal affect, normal mood. SKIN: Warm, dry, normal turgor. No rashes or lesions noted. - INFECTION CONTROL TRAVEL OUTSIDE OF THE [place] IN LAST 30 DAYS: No Course - Re-evaluation Re-evalutation: 06/29/18 23:49 Well-appearing patient can ambulate on it but with difficulty so I placed her in a wheelchair. No obvious trauma. Will defer x-ray at this time. Explained to patient that she has some type of soft tissue injury. Good distal pulses warm skin, knee is not erythematous or warm to touch. Plan to discharge with Orth O follow-up patient agrees with plan. - Vital Signs Vital signs: Temp Pulse Resp BP Pulse Ox 98.3 F 79 16 113/53 L 100 06/29/18 21:57 06/29/18 21:57 06/29/18 21:57 06/29/18 21:57 06/29/18 21:57 Discharge - Discharge Clinical Impression: Knee injury Qualifiers: Encounter type: initial encounter Laterality: left Qualified Code(s): S89.92XA - Unspecified injury of left lower leg, initial encounter Condition: Good Disposition: HOME, SELF-CARE Instructions: Ice & Elevation ([facility]), Suspected Internal Knee Injury ([facility]) Additional Instructions: You are seen in the emergency department for knee pain. Since there was no trauma it is highly unlikely that he sustained a fracture or dislocation. Could relate to bursitis of the knee or potentially a soft tissue injury. It is important that you rest, ice, compress, and elevate the extremity. Please take Motrin 600 mg every 6 hours for pain and inflammation and Tylenol 1000 mg every 6 hours for pain. Please return to the emergency department if your knee gets red and swollen hot Referrals: ANABEL CRAWFORD NP [Primary Care Provider] - Follow up as needed JOVAN CARMONA MD [ACTIVE STAFF] - Follow up as needed
[2018-06-30 02:54] VITALS: BP 115/74
== END 2018-06-30 01:05 | disposition home or self-care (01) ==
LOC: ER 20:58
DX: S89.92XA Unspecified injury of left lower leg, initial encounter (principal); M25.562 Pain in left knee; X58.XXXA Exposure to other specified factors, initial encounter
CPT/HCPCS: 99283

== ENCOUNTER 2019-05-31 16:18 | Emergency (ER) | payer OTHER ==
--- NOTE | 2019-05-31 16:30 | ER Document Report ---
ED Medical Screen (RME) - General Chief Complaint: Epigastric Pain Stated Complaint: NAUSEA,EPIGASTRIC PAIN Time Seen by Provider: 05/31/19 16:22 Information source: Patient TRAVEL OUTSIDE OF THE [place] IN LAST 30 DAYS: No - HPI Notes: 05/31/19 16:29 This 23-year-old female presented to the emergency room today stating that she has had substernal chest pain twice over the last month woke her up at night after eating some large high-fat meals she is concerned about her heart and her gallbladder. - Related Data Allergies/Adverse Reactions: No Known Allergies Allergy (Verified 05/31/19 16:23) Past Medical History - Social History Chew tobacco use (# tins/day): No Frequency of alcohol use: None Drug Abuse: None Renal/ Medical History: Reports: Hx Pelvic Inflammatory Disease. Denies: Hx Peritoneal Dialysis Past Surgical History: Reports: Hx Appendectomy - Immunizations Immunizations up to date: Yes Hx Diphtheria, Pertussis, Tetanus Vaccination: Yes Physical Exam - Vital signs Vitals: Temp Pulse Resp BP Pulse Ox 97.7 F 75 18 117/63 100 05/31/19 16:22 05/31/19 16:22 05/31/19 16:22 05/31/19 16:22 05/31/19 16:22 Course - Vital Signs Vital signs: Temp Pulse Resp BP Pulse Ox 97.7 F 75 18 117/63 100 05/31/19 16:22 05/31/19 16:22 05/31/19 16:22 05/31/19 16:22 05/31/19 16:22
--- NOTE | 2019-05-31 16:58 | ER Document Report ---
ED GI/ - General Chief Complaint: Epigastric Pain Stated Complaint: NAUSEA,EPIGASTRIC PAIN Time Seen by Provider: 05/31/19 16:22 Notes: CHIEF COMPLAINT: Intermittent upper abdominal pain HPI: 23-year-old female with no significant cardiac history presenting for intermittent upper abdominal pain that seems to radiate into the chest. States 3 weeks ago after eating she had a sharp discomfort in the upper abdomen centrally that went into the back and seemed to be up into the chest as well. Lasted for an hour went away. 3 days ago she had something similar occur, called EMS states they did an EKG and did not bring her to the hospital. Patient states that she has continued to think about it and still has mild epigastric abdominal discomfort so wanted to have it evaluated today. No shortness of breath no active chest pain at this time. ROS: See HPI - all other systems were reviewed and are otherwise negative Constitutional: no fever Eyes: no drainage, no blurred vision ENT: no runny nose, no sore throat Cardiovascular: Positive chest pain Resp: no SOB, no cough GI: no vomiting, no diarrhea, positive abdominal pain : no dysuria Integumentary: no rash Allergy: no hives Musculoskeletal: no extremity pain or swelling Neurological: no numbness/tingling, no weakness MEDICATIONS: I agree with the patient medications as charted by the RN. ALLERGIES: I agree with the allergies as charted by the RN. PAST MEDICAL HISTORY/PAST SURGICAL HISTORY: Reviewed and agree as charted by RN. SOCIAL HISTORY: Reviewed and agree as charted by RN. FAMILY HISTORY: No significant familial comorbid conditions directly related to patient complaint EXAM: Reviewed vital signs as charted by RN. CONSTITUTIONAL: Alert and oriented and responds appropriately to questions. Well-appearing; well-nourished, no acute distress HEAD: Normocephalic; atraumatic EYES: PERRL; Conjunctivae clear, sclerae non-icteric ENT: normal nose; no rhinorrhea; moist mucous membranes; pharynx without lesions noted, no uvula edema or deviation, no tonsillar hypertrophy, phonation normal NECK: Supple without meningismus; non-tender; no cervical lymphadenopathy, no masses CARD: RRR; no murmurs, no clicks, no rubs, no gallops; symmetric distal pulses RESP: Normal chest excursion without splinting or tachypnea; breath sounds clear and equal bilaterally; no wheezes, no rhonchi, no rales, pulse oximetry 100% on room air not hypoxic ABD/GI: Normal bowel sounds; non-distended; soft, minimal tenderness in the epigastric region on palpation no right upper quadrant tenderness negative Whatley sign r, no rebound, no guarding; no palpable organomegaly or masses. BACK: The back appears normal and is non-tender to palpation, there is no CVA tenderness EXT: Normal ROM in all joints; non-tender to palpation; no cyanosis, no effusions, no edema SKIN: Normal color for age and race; warm; dry; good turgor; no acute lesions noted NEURO: Moves all extremities equally; Motor and sensory function intact PSYCH: The patient's mood and manner are appropriate. Grooming and personal hygiene are appropriate. MDM: 23-year-old female with no significant medical history with intermittent sharp epigastric pain that seems to radiate up into the chest, may last for an hour or 2 then goes away. Given her age and relatively good health unlikely this is cardiac in nature, initial screening lab work placed by triage provider. We will add an ultrasound of the right upper quadrant to ensure that she does not have cholelithiasis. TRAVEL OUTSIDE OF THE [place] IN LAST 30 DAYS: No - Related Data Allergies/Adverse Reactions: No Known Allergies Allergy (Verified 05/31/19 16:23) Past Medical History - General Information source: Patient - Social History Smoking Status: Never Smoker Chew tobacco use (# tins/day): No Frequency of alcohol use: None Drug Abuse: None Family History: Reviewed & Not Pertinent Patient has suicidal ideation: No Patient has homicidal ideation: No Renal/ Medical History: Reports: Hx Pelvic Inflammatory Disease. Denies: Hx Peritoneal Dialysis Past Surgical History: Reports: Hx Appendectomy - Immunizations Immunizations up to date: Yes Hx Diphtheria, Pertussis, Tetanus Vaccination: Yes Physical Exam - Vital signs Vitals: Temp Pulse Resp BP Pulse Ox 97.7 F 75 18 117/63 100 05/31/19 16:22 05/31/19 16:22 05/31/19 16:22 05/31/19 16:22 05/31/19 16:22 Course - Re-evaluation Re-evalutation: 05/31/19 18:06 Patient is noted to have cholelithiasis likely causing her symptoms. Lab work does not show acute emergent abnormalities, no obstructive issue. I discussed this at length with the patient will discharge home symptomatic treatment follow-up surgery - Vital Signs Vital signs: Temp Pulse Resp BP Pulse Ox 97.7 F 75 18 117/63 100 05/31/19 16:22 05/31/19 16:22 05/31/19 16:22 05/31/19 16:22 05/31/19 16:22 - Laboratory Result Diagrams: 05/31/19 16:40 05/31/19 16:40 Laboratory results interpreted by me: 05/31/19 05/31/19 16:40 16:40 RDW 15.0 H Ur Leukocyte Esterase LARGE H Discharge - Discharge Clinical Impression: Cholelithiasis Qualifiers: Cholelithiasis location: gallbladder Cholecystitis presence: without cholecystitis Biliary obstruction: without biliary obstruction Qualified Code(s): K80.20 - Calculus of gallbladder without cholecystitis without obstruction Condition: Stable Disposition: HOME, SELF-CARE Instructions: Gallbladder Disease ([facility]) Additional Instructions: Take the medication for pain as needed, do not drive if taking narcotics for pain. Zofran for nausea. Avoid fatty or greasy foods. Follow-up with surgery for reevaluation and management of symptoms Prescriptions: Hydrocodone/Acetaminophen [[place] 5-325 mg Tablet] 1 tab PO Q4 PRN #15 tablet PRN Reason: Ondansetron [Zofran Odt 4 mg Tablet] 1 - 2 tab PO Q4H PRN #15 tab.rapdis PRN Reason: For Nausea/Vomiting Referrals: TRISTON FRAZIER MD [Primary Care Provider] - Follow up as needed FER PHAM MD [ACTIVE STAFF] - Follow up as needed
[2019-05-31 17:20] LABS: APPEARANCE,URINE CLOUDY; BILIRUBIN,URINE NEGATIVE (NEGATIVE); COLOR,URINE YELLOW; GLUCOSE, URINE NEGATIVE (NEGATIVE); KETONES,URINE NEGATIVE (NEGATIVE); LEUKOCYTE ESTERASE,URINE LARGE (NEGATIVE); NITRITE,URINE NEGATIVE (NEGATIVE); PROTEIN,URINE NEGATIVE (NEGATIVE); URINE SPECIFIC GRAVITY 1.026; UROBILINOGEN,URINE NEGATIVE mg/dL (<2.0)
[2019-05-31 17:22] LABS: ABSOLUTE EOSINOPHILS # (AUTO) 0.1 10^3/uL (0.0-0.6); ABSOLUTE LYMPHOCYTES (AUTO) 1.5 10^3/uL (0.5-4.7); ABSOLUTE MONOCYTES (AUTO) 0.6 10^3/uL (0.1-1.4); ABSOLUTE NEUT (AUTO) 5.4 10^3/uL (1.7-8.2); BASOPHILS % (AUTO) 0.4 % (0-2); EOSINOPHILS % (AUTO) 1.4 % (0-6); HEMOGLOBIN 12.4 g/dL (12.0-15.5); LYMPHOCYTES % (AUTO) 19.7 % (13-45); MEAN CORPUSCULAR HEMOGLOBIN 28.8 pg (27.0-33.4); MEAN CORPUSCULAR HGB CONC 34.3 g/dL (32.0-36.0); MEAN CORPUSCULAR VOLUME 84 fl (80-97); MONOCYTES % (AUTO) 7.6 % (3-13); PLATELET COUNT 238 10^3/uL (150-450); SEGMENTED NEUTROPHILS % (AUTO) 70.9 % (42-78); TOTAL CELLS COUNTED % (AUTO) 100 %; WHITE BLOOD COUNT 7.7 10^3/uL (4.0-10.5)
[2019-05-31 17:25] LABS: ALBUMIN 4.5 g/dL (3.5-5.0); ALKALINE PHOSPHATASE 79 U/L (38-126); ANION GAP 11 (5-19); ASPARTATE AMINO TRANSFERASE 20 U/L (14-36); BILIRUBIN,DIRECT 0.2 mg/dL (0.0-0.4); BILIRUBIN,TOTAL 0.5 mg/dL (0.2-1.3); BLOOD UREA NITROGEN 11 mg/dL (7-20); CALCIUM 9.6 mg/dL (8.4-10.2); CARBON DIOXIDE 28 mmol/L (22-30); CHLORIDE 102 mmol/L (98-107); GLUCOSE 79 mg/dL (75-110); POTASSIUM 3.9 mmol/L (3.6-5.0); TOTAL PROTEIN 8.2 g/dL (6.3-8.2)
--- NOTE | 2019-05-31 17:46 | RADIOLOGY REPORT (SQ) ---
EXAM DESCRIPTION: U/S ABDOMEN LIMITED W/O DOP COMPLETED DATE/TIME: 05/31/2019 5:32 pm REASON FOR STUDY: upper abd pain COMPARISON: CT abdomen and pelvis 10/15/2008 TECHNIQUE: Grayscale images acquired of the right upper quadrant and recorded on PACS. Additional se lected color Doppler and spectral images recorded. LIMITATIONS: Study limited due to acoustical interference from fat or from air in the bowel. FINDINGS: PANCREAS: Partially obscured by overlying bowel gas. The visualized pancreas is unremarka ble. LIVER: Measures 13.9 cm. Echotexture normal. LIVER VASCULATURE: Normal directional flow of the main portal vein. GALLBLADDER: There is cholelithiasis. Normal wall thickness. No pericholecystic fluid. ULTRASOUND-DETECTED JOHNSTON'S SIGN: Negative. INTRAHEPATIC DUCTS AND COMMON DUCT: CBD and intrahepatic ducts normal caliber. INFERIOR VENA CAVA: Patent. AORTA: No aneurysm at the visualized segments. RIGHT KIDNEY: Measures 9 cm in length. Normal echogenicity. No hydronephrosis. No calcifications. PERITONEAL CAVITY AND RIGHT PLEURAL SPACE: No ascites or effusions. IMPRESSION: Cholelithiasis. No biliary ductal dilation. TECHNICAL DOCUMENTATION: JOB ID: [id number] 2010 [employer]- All Rights Reserved Reading location - IP/workstation name: [email or web address]
[2019-05-31 18:22] VITALS: BP 104/55
--- NOTE | 2019-06-01 05:47 | EKG REPORT ---
SEVERITY:- NORMAL ECG - SINUS RHYTHM : Confirmed by: Judi Xiong MD 01-Jun-2019 05:46:44
== END 2019-05-31 18:22 | disposition home or self-care (01) ==
LOC: ER 16:18
DX: K80.20 Calculus of gallbladder without cholecystitis without obstruction (principal); R10.13 Epigastric pain; R10.816 Epigastric abdominal tenderness
CPT/HCPCS: 36415; 76705; 80053; 81001; 83690; 84484; 85025; 93005; 93010; 99284

== ENCOUNTER 2019-06-09 09:15 | Emergency (ER) | payer OTHER ==
[2019-06-09] MEDS ORDERED: METOCLOPRAMIDE HCL INJ/PF 10 MG/2 ML SDV IV ONE (09:23)
--- NOTE | 2019-06-09 09:25 | ER Document Report ---
ED Medical Screen (RME) - General Chief Complaint: Vomiting Stated Complaint: VOMITING,ABDOMINAL PAIN Time Seen by Provider: 06/09/19 09:21 Mode of Arrival: Ambulatory Information source: Patient Notes: 23-year-old female patient presenting to the emergency department with complaints of right upper quadrant pain and vomiting. Patient reports she has known gallbladder issues. She states her symptoms have been ongoing for a month. She denies any fevers. Tenderness in the right upper quadrant. I have greeted and performed a rapid initial assessment of this patient. A comprehensive ED assessment and evaluation of the patient, analysis of test results and completion of the medical decision making process will be conducted by additional ED providers. I have specifically instructed the patient or family members with the patient to immediately return to any nursing staff should anything change in the patient's condition or with their chief complaint. TRAVEL OUTSIDE OF THE [place] IN LAST 30 DAYS: No - Related Data Allergies/Adverse Reactions: No Known Allergies Allergy (Verified 05/31/19 16:23) Past Medical History Renal/ Medical History: Reports: Hx Pelvic Inflammatory Disease. Denies: Hx Peritoneal Dialysis Past Surgical History: Reports: Hx Appendectomy - Immunizations Immunizations up to date: Yes Hx Diphtheria, Pertussis, Tetanus Vaccination: Yes
--- NOTE | 2019-06-09 09:56 | ER Document Report ---
ED GI/ - General Chief Complaint: Abdominal Pain Stated Complaint: VOMITING,ABDOMINAL PAIN Time Seen by Provider: 06/09/19 09:21 Mode of Arrival: Ambulatory Notes: CHIEF COMPLAINT: Continuing abdominal pain HPI: 23-year-old female presenting again to the emergency department complaining about constipation and continued abdominal pain which is improved since her visit here 10 days ago. States she has had some continuing nausea over the last 2 to 3 days. States she had some vomiting today. Patient reports constipation over the last 2 to 3 weeks worse after taking the hydrocodone which she had been prescribed for her gallbladder issues. Patient has not yet followed up with surgery. She denies fever or cough ROS: See HPI - all other systems were reviewed and are otherwise negative Constitutional: no fever Eyes: no drainage, no blurred vision ENT: no runny nose, no sore throat Cardiovascular: no chest pain Resp: no SOB, no cough GI: Positive vomiting, no diarrhea, positive abdominal pain, positive constipation : no dysuria Integumentary: no rash Allergy: no hives Musculoskeletal: no extremity pain or swelling Neurological: no numbness/tingling, no weakness MEDICATIONS: I agree with the patient medications as charted by the RN. ALLERGIES: I agree with the allergies as charted by the RN. PAST MEDICAL HISTORY/PAST SURGICAL HISTORY: Reviewed and agree as charted by RN. SOCIAL HISTORY: Reviewed and agree as charted by RN. FAMILY HISTORY: No significant familial comorbid conditions directly related to patient complaint EXAM: Reviewed vital signs as charted by RN. CONSTITUTIONAL: Alert and oriented and responds appropriately to questions. Well-appearing; well-nourished, no acute distress HEAD: Normocephalic; atraumatic EYES: PERRL; Conjunctivae clear, sclerae non-icteric ENT: normal nose; no rhinorrhea; moist mucous membranes; pharynx without lesions noted, no uvula edema or deviation, no tonsillar hypertrophy, phonation normal NECK: Supple without meningismus; non-tender; no cervical lymphadenopathy, no masses CARD: RRR; no murmurs, no clicks, no rubs, no gallops; symmetric distal pulses RESP: Normal chest excursion without splinting or tachypnea; breath sounds clear and equal bilaterally; no wheezes, no rhonchi, no rales, pulse oximetry 99% on room air not hypoxic ABD/GI: Normal bowel sounds; non-distended; soft, minimal tenderness in the epigastric region on palpation no significant discomfort on palpation of the right upper quadrant. Minimal suprapubic discomfort on palpation, no rebound, no guarding; no palpable organomegaly or masses. BACK: The back appears normal and is non-tender to palpation, there is no CVA tenderness EXT: Normal ROM in all joints; non-tender to palpation; no cyanosis, no effusions, no edema SKIN: Normal color for age and race; warm; dry; good turgor; no acute lesions noted NEURO: Moves all extremities equally; Motor and sensory function intact PSYCH: The patient's mood and manner are appropriate. Grooming and personal hy giene are appropriate. MDM: 23-year-old female presenting again for evaluation of abdominal discomfort. Has had nausea with one episode of vomiting today. I saw this patient 10 days ago for similar complaints. Has had increased constipation after starting on the hydrocodone, she was diagnosed with cholelithiasis when I previously saw her, has not had worsening symptoms in the upper abdomen. States she does have a vaginal discharge but this is normal for her. No dysuria. Initial screening labs and repeat ultrasound via triage process TRAVEL OUTSIDE OF THE [place] IN LAST 30 DAYS: No - Related Data Allergies/Adverse Reactions: No Known Allergies Allergy (Verified 05/31/19 16:23) Home Medications: Zofran, Hydrocodone Past Medical History - General Information source: Patient - Social History Smoking Status: Never Smoker Family History: Reviewed & Not Pertinent Patient has suicidal ideation: No Patient has homicidal ideation: No Renal/ Medical History: Reports: Hx Pelvic Inflammatory Disease. Denies: Hx Peritoneal Dialysis Past Surgical History: Reports: Hx Appendectomy - Immunizations Immunizations up to date: Yes Hx Diphtheria, Pertussis, Tetanus Vaccination: Yes Physical Exam - Vital signs Vitals: Temp Pulse Resp BP Pulse Ox 97.9 F 83 18 128/65 H 99 06/09/19 09:24 06/09/19 09:24 06/09/19 09:24 06/09/19 09:24 06/09/19 09:24 Course - Re-evaluation Re-evalutation: 06/09/19 12:26 Lab work and imaging studies do not show acute emergent abnormalities I spoke with the patient at length about this. She will continue with follow-up with surgery clinic, I will change patient from Zofran to Reglan for her nausea issues. She is requesting something for hemorrhoids, I will write her for Anusol - Vital Signs Vital signs: Temp Pulse Resp BP Pulse Ox 97.9 F 83 18 128/65 H 99 06/09/19 09:24 06/09/19 09:24 06/09/19 09:24 06/09/19 09:24 06/09/19 09:24 - Laboratory Result Diagrams: 06/09/19 10:10 06/09/19 10:10 Laboratory results interpreted by me: 06/09/19 10:10 Hct 35.4 L RDW 14.8 H Lymph % (Auto) 11.4 L Seg Neutrophils % 82.3 H Discharge - Discharge Clinical Impression: Abdominal pain, acute, generalized, Constipation Condition: Stable Disposition: HOME, SELF-CARE Additional Instructions: Use the Anusol suppositories for the hemorrhoids. Use Reglan for nausea. Continue follow-up with surgery clinic for further evaluation and treatment. Your imaging studies and lab work today did not show acute emergent abn ormalities Prescriptions: Phenylephrine HCl [Anusol Suppository] 1 each CA BID PRN #10 supp.rect PRN Reason: Metoclopramide HCl [Reglan 10 mg Tablet] 1 tab PO Q6H PRN #20 tablet PRN Reason:
[2019-06-09 10:38] LABS: ABSOLUTE EOSINOPHILS # (AUTO) 0.1 10^3/uL (0.0-0.6); ABSOLUTE LYMPHOCYTES (AUTO) 0.9 10^3/uL (0.5-4.7); ABSOLUTE MONOCYTES (AUTO) 0.4 10^3/uL (0.1-1.4); ABSOLUTE NEUT (AUTO) 6.9 10^3/uL (1.7-8.2); BASOPHILS % (AUTO) 0.5 % (0-2); EOSINOPHILS % (AUTO) 0.6 % (0-6); HEMATOCRIT 35.4 % (36.0-47.0); HEMOGLOBIN 12.3 g/dL (12.0-15.5); LYMPHOCYTES % (AUTO) 11.4 % (13-45); MEAN CORPUSCULAR HEMOGLOBIN 28.8 pg (27.0-33.4); MEAN CORPUSCULAR HGB CONC 34.7 g/dL (32.0-36.0); MEAN CORPUSCULAR VOLUME 83 fl (80-97); MONOCYTES % (AUTO) 5.2 % (3-13); PLATELET COUNT 267 10^3/uL (150-450); RED BLOOD COUNT 4.25 10^6/uL (3.72-5.28); RED CELL DISTRIBUTION WIDTH 14.8 % (11.5-14.0); SEGMENTED NEUTROPHILS % (AUTO) 82.3 % (42-78); TOTAL CELLS COUNTED % (AUTO) 100 %; WHITE BLOOD COUNT 8.3 10^3/uL (4.0-10.5)
[2019-06-09 11:04] LABS: ALBUMIN 4.4 g/dL (3.5-5.0); ALKALINE PHOSPHATASE 73 U/L (38-126); ANION GAP 9 (5-19); ASPARTATE AMINO TRANSFERASE 20 U/L (14-36); BILIRUBIN,DIRECT 0.2 mg/dL (0.0-0.4); BILIRUBIN,TOTAL 0.4 mg/dL (0.2-1.3); BLOOD UREA NITROGEN 10 mg/dL (7-20); CALCIUM 9.7 mg/dL (8.4-10.2); CARBON DIOXIDE 25 mmol/L (22-30); CHLORIDE 105 mmol/L (98-107); GLUCOSE 95 mg/dL (75-110); POTASSIUM 4.1 mmol/L (3.6-5.0)
--- NOTE | 2019-06-09 11:06 | RADIOLOGY REPORT (SQ) ---
EXAM DESCRIPTION: U/S ABDOMEN LIMITED W/O DOP IMAGES COMPLETED DATE/TIME: 06/09/2019 10:47 am REASON FOR STUDY: RUQ pain/vomiting COMPARISON: 05/31/2019 TECHNIQUE: Dynamic and static grayscale images acquired of the abdomen and recorded on PACS. Gloriao ken selected color Doppler and spectral images recorded. LIMITATIONS: None. FINDINGS: PANCREAS: No masses. Visualized pancreatic duct normal caliber. LIVER: No masses. Echotexture normal. LIVER VASCULATURE: Normal directional flow of the main portal vein and hepatic veins. GALLBLADDER: Gallstones are again noted. No wall thickening. No pericholecystic edema. ULTRASOUND-DETECTED JOHNSTON'S SIGN: Negative. INTRAHEPATIC DUCTS AND COMMON DUCT: CBD and intrahepatic ducts normal caliber. No filling defects. INFERIOR VENA CAVA: Normal flow. AORTA: No aneurysm. RIGHT KIDNEY: Normal size. Normal echogenicity. No solid or suspicious masses. No hydronephrosis. No calcifications. PERITONEAL AND RIGHT PLEURAL SPACE: No ascites or effusions. OTHER: No other significant findings. IMPRESSION: GALLSTONES. NO OTHER SIGNIFICANT FINDINGS. SIMILAR FINDINGS WERE NOTED ON 05/31/2019 TECHNICAL DOCUMENTATION: JOB ID: [id number] 2010 [employer]- All Rights Reserved Reading location - IP/workstation name: [email or web address]
--- NOTE | 2019-06-09 11:40 | RADIOLOGY REPORT (SQ) ---
EXAM DESCRIPTION: KUB/ABDOMEN (SINGLE VIEW) IMAGES COMPLETED DATE/TIME: 06/09/2019 11:28 am REASON FOR STUDY: abd pain COMPARISON: None. NUMBER OF VIEWS: One view. TECHNIQUE: Supine radiographic image of the abdomen acquired. LIMITATIONS: None. FINDINGS: BOWEL GAS PATTERN: Normal bowel gas pattern. No dilated loops. CALCIFICATIONS: No suspicious calcifications. SOFT TISSUES: No gross mass or suggestion of organomegaly. HARDWARE: None in the abdomen. BONES: No acute fracture. No worrisome bone lesions. OTHER: No other significant finding. IMPRESSION: NO RADIOGRAPHIC EVIDENCE FOR ACUTE ABDOMINAL DISEASE. TECHNICAL DOCUMENTATION: JOB ID: [id number] 2010 [employer] All Rights Reserved Reading location - IP/workstation name: [email or web address]
[2019-06-09 13:52] VITALS: BP 118/72
== END 2019-06-09 13:53 | disposition home or self-care (01) ==
LOC: ER 09:15
DX: K59.00 Constipation, unspecified (principal); K80.20 Calculus of gallbladder without cholecystitis without obstruction; R10.84 Generalized abdominal pain; R11.2 Nausea with vomiting, unspecified; Z79.899 Other long term (current) drug therapy; Z79.891 Long term (current) use of opiate analgesic
CPT/HCPCS: 99284; 96374; 36415; 83690; 85025; 80053; 74018; 76705; J2765

== ENCOUNTER 2019-06-22 00:32 | Emergency (ER) | payer OTHER ==
[2019-06-22 01:51] LABS: ABSOLUTE EOSINOPHILS # (AUTO) 0.1 10^3/uL (0.0-0.6); ABSOLUTE LYMPHOCYTES (AUTO) 1.8 10^3/uL (0.5-4.7); ABSOLUTE MONOCYTES (AUTO) 0.5 10^3/uL (0.1-1.4); ABSOLUTE NEUT (AUTO) 5.1 10^3/uL (1.7-8.2); BASOPHILS % (AUTO) 0.5 % (0-2); EOSINOPHILS % (AUTO) 1.6 % (0-6); HEMATOCRIT 35.5 % (36.0-47.0); HEMOGLOBIN 12.1 g/dL (12.0-15.5); MEAN CORPUSCULAR HEMOGLOBIN 28.6 pg (27.0-33.4); MEAN CORPUSCULAR HGB CONC 34.2 g/dL (32.0-36.0); MEAN CORPUSCULAR VOLUME 84 fl (80-97); MONOCYTES % (AUTO) 6.6 % (3-13); PLATELET COUNT 256 10^3/uL (150-450); RED BLOOD COUNT 4.25 10^6/uL (3.72-5.28); RED CELL DISTRIBUTION WIDTH 14.3 % (11.5-14.0); SEGMENTED NEUTROPHILS % (AUTO) 67.3 % (42-78); TOTAL CELLS COUNTED % (AUTO) 100 %; WHITE BLOOD COUNT 7.5 10^3/uL (4.0-10.5)
[2019-06-22 02:14] LABS: ALBUMIN 4.2 g/dL (3.5-5.0); ALKALINE PHOSPHATASE 69 U/L (38-126); ANION GAP 6 (5-19); ASPARTATE AMINO TRANSFERASE 18 U/L (14-36); BILIRUBIN,TOTAL 0.3 mg/dL (0.2-1.3); BLOOD UREA NITROGEN 12 mg/dL (7-20); CALCIUM 9.6 mg/dL (8.4-10.2); CARBON DIOXIDE 29 mmol/L (22-30); CHLORIDE 104 mmol/L (98-107); GLUCOSE 91 mg/dL (75-110); POTASSIUM 4.4 mmol/L (3.6-5.0); TOTAL PROTEIN 7.3 g/dL (6.3-8.2)
[2019-06-22] MEDS ORDERED: ONDANSETRON ODT 4 MG TAB (6 TAB/ER DISP) PO PRN (02:28)
[2019-06-22] MEDS ORDERED: HYDROCODONE/ACETAMINOPHEN 5-325 MG (6 TAB/ER DISP) PO PRN (02:28)
[2019-06-22 02:42] VITALS: BP 108/54
--- NOTE | 2019-06-22 03:02 | ER Document Report ---
Entered by DAJA HARRELL SCRIBE 06/22/19 0142 Acting as scribe for:IQRA BOUCHER IV, MD ED General - General Chief Complaint: Back Pain Stated Complaint: BACK PAIN Time Seen by Provider: 06/22/19 01:38 Primary Care Provider: TRISTON FRAZIER MD [ACTIVE STAFF] - Follow up as needed Mode of Arrival: Ambulatory Information source: Patient Notes: This 23 year old female patient presents to the ED today with complaints of back pain with associated nausea that started around 1999 yesterday evening. Patient states that the pain seems to radiate to the sternal region of the chest and RUQ abdominal region. She reports that the pain is exacerbated by deep inhalation. She notes that she was seen here on 05/31/19 and 06/09/19 for similar symptoms and was diagnosed with cholelithiasis. She was sent home with a to-go pack of [place] and Zofran; however, she reports no relief of the pain after taking x1 [place] tablet prior to arrival today, so she came to the ED. She states that she has a follow up appointment scheduled with a surgeon on 07/07/19 and is requesting assistance with pain management until then. TRAVEL OUTSIDE OF THE [place] IN LAST 30 DAYS: No - Related Data Allergies/Adverse Reactions: No Known Allergies Allergy (Verified 05/31/19 16:23) Past Medical History - General Information source: Patient - Social History Smoking Status: Never Smoker Cigarette use (# per day): No Chew tobacco use (# tins/day): No Smoking Education Provided: No Frequency of alcohol use: None Drug Abuse: None Family History: Reviewed & Not Pertinent Patient has suicidal ideation: No Patient has homicidal ideation: No Renal/ Medical History: Reports: Hx Pelvic Inflammatory Disease Past Surgical History: Reports: Hx Appendectomy - Immunizations Immunizations up to date: Yes Hx Diphtheria, Pertussis, Tetanus Vaccination: Yes Review of Systems - Review of Systems Constitutional: No symptoms reported EENT: No symptoms reported Cardiovascular: See HPI, Chest pain - reproducible Respiratory: No symptoms reported Gastrointestinal: See HPI, Abdominal pain, Nausea, Constipation. denies: Vomi ting Genitourinary: No symptoms reported Female Genitourinary: No symptoms reported Musculoskeletal: See HPI, Back pain Skin: No symptoms reported Hematologic/Lymphatic: No symptoms reported Neurological/Psychological: No symptoms reported -: Yes All other systems reviewed and negative Physical Exam - Vital signs Vitals: Temp Pulse Resp BP Pulse Ox 97.7 F 70 16 106/59 L 99 06/22/19 00:39 06/22/19 00:39 06/22/19 00:39 06/22/19 00:39 06/22/19 00:39 - General General appearance: Alert In distress: None - HEENT Head: Normocephalic, Atraumatic Eyes: Normal Pupils: PERRL - Respiratory Respiratory status: No respiratory distress Chest status: Nontender Breath sounds: Normal Chest palpation: Normal - Cardiovascular Rhythm: Regular Heart sounds: Normal auscultation Murmur: No Friction rub: No Gallop: None auscultated - Abdominal Inspection: Normal Distension: No distension Bowel sounds: Normal Tenderness: Nontender - Abdomen soft Organomegaly: No organomegaly - Back Back: Normal, Nontender - Extremities General upper extremity: Normal inspection General lower extremity: Normal inspection - Neurological Neuro grossly intact: Yes - Psychological Associated symptoms: Normal affect, Normal mood - Skin Skin Temperature: Warm Skin Moisture: Dry Skin Color: Normal Course - Re-evaluation Re-evalutation: 06/22/19 02:25 Medical records reviewed by this MD. Based on the patient's history, physical findings, review of the medical record, review of current and prior lab work studies and imaging, this MD feels that the patient is having a episode of pain related to her gallstones. Findings are consistent with biliary colic. Patient states that she has an appointment on July 06 of this year with a surgeon to talk about gallbladder removal. All questions were answered prior to discharge. Emergency signs and symptoms, reasons to return to the emergency department discussed with patient. - Vital Signs Vital signs: Temp Pulse Resp BP Pulse Ox 97.8 F 72 16 108/54 L 100 06/22/19 02:42 06/22/19 02:42 06/22/19 02:42 06/22/19 02:42 06/22/19 02:42 - Laboratory Result Diagrams: 06/22/19 01:30 06/22/19 01:30 Laboratory results interpreted by me: 06/22/19 01:30 Hct 35.5 L RDW 14.3 H Discharge - Discharge Clinical Impression: Recurrent biliary colic Condition: Good Disposition: HOME, SELF-CARE Instructions: Gallbladder Disease ([facility]), Low-Fat Diet ([facility]) Additional Instructions: Return to the Emergency Department without delay if any worse. Be certain to keep your follow-up appointment with the surgeon you were referred to on 07/07/2019. HOME CARE INSTRUCTIONS & INFORMATION: Thank you for choosing us for your medical needs. We hope you're satisfied with the care you received. After you leave, you must properly care for your problem and, at the same time, observe its progress. Any condition can change. Some illnesses can change rapidly over hours or days. If your condition worsens, return to the Emergency Department or see your physician promptly. ABOUT YOUR X-RAYS AND EKG'S: If you had an EKG or X-rays taken, they have been read by the Emergency Physician. The X-rays and EKG's will also be read by a Radiologist or Pastry Supervisor within 24 hours. If discrepancies are noted, you will be notified by telephone. Please be certain the ED has a correct telephone number & address where you can be reached. Also, realize that some fractures or abnormalities do not show up on initial X-rays. If your symptoms continue, see your physician. ABOUT YOUR LABORATORY TEST: If you had laboratory tests, the results have been reviewed by the Emergency Physician. Some test results (for example cultures) may not be available for several days. You will be contacted if any test result shows you need additional treatment. Please be certain the ED has a correct telephone number and address where you can be reached. ABOUT YOUR MEDICATIONS: You will receive instructions on how to take your medi cine on the prescription label you receive. Additional information may be provided by the Pharmacy. If you have questions afterwards, call the ED for clarification or further instructions. Some prescribed medications may cause drowsiness. Do not perform tasks such as driving a car or operating machinery without consulting your Pharmacist. If you feel you need a refill of pain medication, your condition will need re-evaluation. Please do not call for a refill of any medication. ABOUT YOUR SIGNATURE: Signature of this document acknowledges to followin. Understanding that you received emergency treatment and that you may be released before al medical problems are known or treated. Please be certain the ED has a correct phone number & address where you can be reached. 2. Acknowledgement that you will arrange for follow-up care as recommended. 3. Authorization for the Emergency Physician to provide information to your follow-up Physician in order to maximize your care. AT ANY TIME, IF YOUR SYMPTOMS CHANGE SIGNIFICANTLY OR WORSEN OR YOU DEVELOP NEW SYMPTOMS, RETURN TO THE EMERGENCY DEPARTMENT IMMEDIATELY FOR RE-EVALUATION. OUR GOAL IS TO PROVIDE EXCELLENT MEDICAL CARE! WE HOPE THAT WE HAVE MET YOUR EXPECTATIONS DURING YOUR EMERGENCY DEPARTMENT VISIT AND THAT YOU FEEL YOU HAVE RECEIVED EXCELLENT CARE! Prescriptions: Hydrocodone/Acetaminophen [[place] 5-325 mg Tablet] 2 tab PO Q6HP PRN #15 tab PRN Reason: pain Referrals: TRISTON FRAZIER MD [ACTIVE STAFF] - Follow up as needed I personally performed the services described in the documentation, reviewed and edited the documentation which was dictated to the scribe in my presence, and it accurately records my words and actions.
== END 2019-06-22 02:48 | disposition home or self-care (01) ==
LOC: ER 00:32
DX: K80.50 Calculus of bile duct without cholangitis or cholecystitis without obstruction (principal); M54.9 Dorsalgia, unspecified; R11.0 Nausea; R07.9 Chest pain, unspecified; R10.11 Right upper quadrant pain; K59.00 Constipation, unspecified
CPT/HCPCS: 36415; 80053; 85025; 99284

== ENCOUNTER 2019-07-09 04:24 | Emergency (ER) | payer OTHER ==
--- NOTE | 2019-07-09 04:57 | ER Document Report ---
ED GI/ - General Chief Complaint: Abdominal Pain Stated Complaint: ABDOMINAL PAIN Time Seen by Provider: 07/09/19 04:56 Primary Care Provider: TRISTON FRAZIER MD [Primary Care Provider] - Follow up as needed Mode of Arrival: Stretcher Information source: Patient Notes: A 23-year-old female past medical history significant for cholelithiasis arrived to the ER via EMS complaining of a gallbladder attack that woke her up out of a sound sleep early this morning. States she was nauseous and vomited once. States she was post to see his surgeon 2 days ago but the appointment was not preapproved by her insurance company. She denies any fevers. She denies any urinary symptoms. Not taking any medications for her pain. States she is trying to monitor her diet. Has not been eating any greasy food fried food heavy sauces. Basically is just eating a bland diet for the patient. TRAVEL OUTSIDE OF THE [place] IN LAST 30 DAYS: No - Related Data Allergies/Adverse Reactions: No Known Allergies Allergy (Verified 05/31/19 16:23) Home Medications: NONE Past Medical History - General Information source: Patient - Social History Smoking Status: Former Smoker Chew tobacco use (# tins/day): No Frequency of alcohol use: None Drug Abuse: None Lives with: Family Family History: Reviewed & Not Pertinent Patient has homicidal ideation: No Renal/ Medical History: Reports: Hx Pelvic Inflammatory Disease. Denies: Hx Peritoneal Dialysis Past Surgical History: Reports: Hx Appendectomy - Immunizations Immunizations up to date: Yes Hx Diphtheria, Pertussis, Tetanus Vaccination: Yes Review of Systems - Review of Systems Constitutional: No symptoms reported EENT: No symptoms reported Cardiovascular: No symptoms reported Respiratory: No symptoms reported Gastrointestinal: Abdominal pain, Nausea, Vomiting Genitourinary: No symptoms reported Musculoskeletal: No symptoms reported Neurological/Psychological: No symptoms reported -: Yes All other systems reviewed and negative Physical Exam - Vital signs Vitals: Temp Pulse Resp BP Pulse Ox 97.4 F 72 16 106/58 L 100 07/09/19 04:26 07/09/19 04:26 07/09/19 04:26 07/09/19 04:26 07/09/19 04:26 - General General appearance: Appears well, Alert In distress: None - HEENT Head: Normocephalic, Atraumatic Eyes: Normal Pupils: PERRL - Respiratory Respiratory status: No respiratory distress Chest status: Nontender Breath sounds: Normal Chest palpation: Normal - Cardiovascular Rhythm: Regular Heart sounds: Normal auscultation Murmur: No - Abdominal Inspection: Normal Distension: No distension Bowel sounds: Normal Tenderness: Nontender. No: McBurney's point, Whatley's sign, Guarding, Rebound Organomegaly: No organomegaly - Back Back: Normal, Nontender. No: CVA tenderness - Neurological Neuro grossly intact: Yes Cognition: Normal Orientation: AAOx4 [place] Coma Scale Eye Opening: Spontaneous [place] Coma Scale Verbal: Oriented [place] Coma Scale Motor: Obeys Commands [place] Coma Scale Total: 15 Speech: Normal Motor strength normal: LUE, RUE, LLE, RLE Sensory: Normal - Skin Skin Temperature: Warm Skin Moisture: Dry Skin Color: Normal Course - Re-evaluation Re-evalutation: 07/09/19 07:28 Patient is resting comfortably she remains pain-free at this time. She is all able to tolerate p.o. fluids. Reviewed lab and ultrasound results with patient. She was counseled on need to follow-up outpatient with general surgery as previously scheduled. Continue with bland diet. Tylenol and/or Motrin as needed for pain. Patient was given strict return to the emergency room all questions were answered. Patient verbalized understanding agrees with plan of care. - Vital Signs Vital signs: Temp Pulse Resp BP Pulse Ox 97.4 F 72 16 106/58 L 100 07/09/19 04:26 07/09/19 04:26 07/09/19 04:26 07/09/19 04:26 07/09/19 04:26 - Laboratory Result Diagrams: 07/09/19 05:30 07/09/19 05:30 Laboratory results interpreted by me: 07/09/19 07/09/19 05:30 05:30 Hgb 11.5 L Hct 33.7 L RDW 14.2 H AST 79 H - Diagnostic Test Radiology reviewed: Reports reviewed Discharge - Discharge Clinical Impression: Cholelithiasis Condition: Stable Disposition: HOME, SELF-CARE Instructions: Gallbladder Disease ([facility]) Additional Instructions: [place] diet, Tylenol and/or Motrin for pain. Outpatient follow-up with general surgery. Return for any new or worsening symptoms. Referrals: TRISTON FRAZIER MD [Primary Care Provider] - Follow up as needed ADITHYA BELLO MD [ACTIVE STAFF] - Follow up in 3-5 days (Call for follow up appointment)
[2019-07-09] MEDS ORDERED: ACETAMINOPHEN 325 MG TABLET PO ONE (05:14)
[2019-07-09 05:49] LABS: ABSOLUTE EOSINOPHILS # (AUTO) 0.1 10^3/uL (0.0-0.6); ABSOLUTE LYMPHOCYTES (AUTO) 1.4 10^3/uL (0.5-4.7); ABSOLUTE MONOCYTES (AUTO) 0.6 10^3/uL (0.1-1.4); ABSOLUTE NEUT (AUTO) 5.7 10^3/uL (1.7-8.2); BASOPHILS % (AUTO) 0.5 % (0-2); EOSINOPHILS % (AUTO) 1.1 % (0-6); HEMATOCRIT 33.7 % (36.0-47.0); HEMOGLOBIN 11.5 g/dL (12.0-15.5); LYMPHOCYTES % (AUTO) 17.9 % (13-45); MEAN CORPUSCULAR HEMOGLOBIN 28.9 pg (27.0-33.4); MEAN CORPUSCULAR HGB CONC 34.1 g/dL (32.0-36.0); MEAN CORPUSCULAR VOLUME 85 fl (80-97); MONOCYTES % (AUTO) 7.2 % (3-13); PLATELET COUNT 233 10^3/uL (150-450); RED BLOOD COUNT 3.97 10^6/uL (3.72-5.28); RED CELL DISTRIBUTION WIDTH 14.2 % (11.5-14.0); SEGMENTED NEUTROPHILS % (AUTO) 73.3 % (42-78); TOTAL CELLS COUNTED % (AUTO) 100 %; WHITE BLOOD COUNT 7.8 10^3/uL (4.0-10.5)
[2019-07-09 06:03] LABS: ALBUMIN 3.8 g/dL (3.5-5.0); ALKALINE PHOSPHATASE 70 U/L (38-126); ANION GAP 6 (5-19); ASPARTATE AMINO TRANSFERASE 79 U/L (14-36); BILIRUBIN,TOTAL 0.4 mg/dL (0.2-1.3); BLOOD UREA NITROGEN 9 mg/dL (7-20); CALCIUM 8.9 mg/dL (8.4-10.2); CARBON DIOXIDE 27 mmol/L (22-30); CHLORIDE 105 mmol/L (98-107); GLUCOSE 93 mg/dL (75-110); POTASSIUM 3.7 mmol/L (3.6-5.0); TOTAL PROTEIN 6.7 g/dL (6.3-8.2)
--- NOTE | 2019-07-09 07:17 | RADIOLOGY REPORT (SQ) ---
EXAM DESCRIPTION: US ABDOMEN LIMITED COMPLETED DATE/TME: 07/09/2019 06:06 CLINICAL HISTORY: ruq pain COMPARISON: 06/09/2019 TECHNIQUE: Real-time sonographic images of the right upper abdomen were obtained using a curved multihertz transducer. FINDINGS: Pancreas: The visualized portions of the pancreas are unremarkable. Vascular: The visualized portions of the aorta and IVC are unremarkable. Liver: The liver has normal contour and increased echogenicity. Hepatopedal flow in the portal vein. Findings confirmed with color and spectral Doppler imaging. The common bile duct measures 0.7 cm. Gallbladder: Positive reported sonographic Whatley sign. Normal gallbladder wall thickness. No pericholecystic fluid. Mobile echogenic structures with posterior shadowing in the gallbladder lumen. Right Kidney: The right kidney measures 9.7 cm in length. No hydronephrosis, solid renal mass, or shadowing calculi. IMPRESSION: 1. Cholelithiasis with positive reported sonographic Whatley sign. 2. Mild dilation of the common bile duct with increase in caliber from the comparison study. If there is concern for biliary obstruction MRCP could provide additional characterization.
[2019-07-09 09:11] VITALS: BP 96/54
== END 2019-07-09 09:10 | disposition home or self-care (01) ==
LOC: ER 04:24
DX: K80.20 Calculus of gallbladder without cholecystitis without obstruction (principal); R10.9 Unspecified abdominal pain; R11.2 Nausea with vomiting, unspecified; Z90.49 Acquired absence of other specified parts of digestive tract; Z87.891 Personal history of nicotine dependence
CPT/HCPCS: 36415; 76705; 80053; 83690; 85025; 99284